=== PATIENT | female | born 1995 | race Caucasian/White ===

== ENCOUNTER 2017-11-04 07:23 | Inpatient (IN) | payer OTHER ==
[2017-11-04] MEDS ORDERED: Oxytocin/Lactated Ringers 10 UNIT/1,000 ML BAG IV SCH (08:30)
[2017-11-04] MEDS ORDERED: Sodium Chloride 0.9% 10 ML Syringe FLUSH PRN (08:30)
[2017-11-04] MEDS: Lactated Ringers 1,000 ML IV SCH ×4 (10:03→13:12)
[2017-11-04] MEDS ORDERED: ePHEDrine 50 MG/ML SDV IVPUSH PRN (10:44)
[2017-11-04] MEDS ORDERED: fentaNYL 100 MCG/2 ML SDV EPIDUR PRN (10:44)
[2017-11-04] MEDS ORDERED: diphenhydrAMINE 50 MG/ML SDV IVPUSH PRN (10:44)
[2017-11-04] MEDS ORDERED: Bupivacaine/fentaNYL/NS 100 ML Bag EPIDUR SCH (10:45)
--- NOTE | 2017-11-04 11:14 | PCM.PREANE ---
Preanesthetic Assessment - Anesthesia/Transfusion/Family Hx Anesthesia History: No Prior Anesthesia Family History of Anesthesia Reaction: No Transfusion History: No Prior Transfusion(s) - Review of Systems General: No Symptoms Pulmonary: No Symptoms Cardiovascular: No Symptoms Gastrointestinal: No Symptoms Neurological: Numbness (feet with ) Other: Reports: None - Physical Assessment Pulse: 84 O2 Sat by Pulse Oximetry: 97 Respiratory Rate: 17 Blood Pressure: 115/87 Temperature: 36.4 C Vital Signs: Last Vital Signs Temp 36.4 C 11/04/17 07:49 Pulse 84 11/04/17 07:49 Resp 17 11/04/17 07:49 BP 115/77 11/04/17 07:49 Pulse Ox Height: 1.75 m Weight: 74.389 kg ASA Class: 2 Mental Status: Alert & Oriented x3 Airway Class: Mallampati = 1 Dentition: Reports: Normal Dentition Thyro-Mental Finger Breadths: 3 Mouth Opening Finger Breadths: 3 ROM/Head Extension: Full Lungs: Clear to Auscultation, Normal Respiratory Effort Cardiovascular: Regular Rate, Regular Rhythm - Lab Values: Laboratory Last Values WBC 15.79 K/mm3 (3.98-10.04) H 11/04/17 08:42 RBC 4.16 M/mm3 (3.98-5.22) 11/04/17 08:42 Hgb 12.7 gm/L (11.2-15.7) 11/04/17 08:42 Hct 36.9 % (34.1-44.9) 11/04/17 08:42 MCV 88.7 fl (79.4-94.8) 11/04/17 08:42 MCH 30.5 pg (25.6-32.2) 11/04/17 08:42 MCHC 34.4 g/dl (32.2-35.5) 11/04/17 08:42 RDW Std Deviation 42.4 fL (36.4-46.3) 11/04/17 08:42 Plt Count 131 K/mm3 (182-369) L 11/04/17 08:42 MPV 11.3 fl (9.4-12.3) 11/04/17 08:42 Neut % (Auto) 84.1 % (34.0-71.1) H 11/04/17 08:42 Lymph % (Auto) 8.4 % (19.3-51.7) L 11/04/17 08:42 Crosby % (Auto) 6.5 % (4.7-12.5) 11/04/17 08:42 Eos % (Auto) 0.6 (0.7-5.8) L 11/04/17 08:42 Baso % (Auto) 0.1 % (0.1-1.2) 11/04/17 08:42 Neut # (Auto) 13.29 K/mm3 (1.56-6.13) H 11/04/17 08:42 Lymph # (Auto) 1.33 K/mm3 (1.18-3.74) 11/04/17 08:42 Crosby # (Auto) 1.03 K/mm3 (0.24-0.36) H 11/04/17 08:42 Eos # (Auto) 0.09 K/mm3 (0.04-0.36) 11/04/17 08:42 Baso # (Auto) 0.01 K/mm3 (0.01-0.08) 11/04/17 08:42 Manual Slide Review Abnormal smear 11/04/17 08:42 Blood Type O POSITIVE 11/04/17 08:42 Gel Antibody Screen Negative 11/04/17 08:42 - Allergies Allergies/Adverse Reactions: Allergies Allergy/AdvReac Type Severity Reaction Status Date / Time amoxicillin Allergy Hives Verified 11/04/17 07:49 - Anesthesia Plan Pre-Op Medication Ordered: None - Acknowledgements Anesthesia Type Planned: Epidural Pt an Appropriate Candidate for the Planned Anesthesia: Yes Alternatives and Risks of Anesthesia Discussed w Pt/Guardian: Yes Pt/Guardian Understands and Agrees with Anesthesia Plan: Yes PreAnesthesia Questionnaire - Past Health History Medical/Surgical History: Denies Medical/Surgical History Gastrointestinal History: Reports: GERD CURATOR 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 Not in MDRO book , will call health facility for cleared records. - SUBSTANCE USE Smoking Status *Q: Never Smoker Recreational Drug Use History: No - HOME MEDS Home Medications: Home Meds Docosahexanoic Acid [DHA] 100 mg PO DAILY 11/04/17 [History] Prenat Vit Comb.10/Iron/Fa/Dha [Vitafol-OB + DHA] 1 each PO DAILY 11/04/17 [ History] - CURRENT (IN HOUSE) MEDS Current Meds: Current Medications Diphenhydramine HCl (Benadryl) 25 mg IVPUSH Q6H PRN PRN Reason: Itching Ephedrine Sulfate (Ephedrine Sulfate) 5 mg IVPUSH ASDIRECTED PRN PRN Reason: HYPOTENTSION Fentanyl (Sublimaze) 100 mcg EPIDUR Q3H PRN PRN Reason: PAIN Last Admin: 11/04/17 11:07 Dose: 100 mcg Fentanyl/Bupivacaine HCl (Fentanyl/Bupivacaine/Ns 2 Mcg-0.125% 100 Ml) 100 ml EPIDUR ASDIRECTED [facility] Last Admin: 11/04/17 11:07 Dose: 100 ml Lactated Ringer's (Ringers, Lactated) 1,000 mls @ 100 mls/hr IV ASDIRECTED [facility] Last Admin: 11/04/17 10:29 Dose: 999 mls/hr Oxytocin/Lactated Ringer's (Pitocin In Lr 10 Units/1,000 Ml) 10 unit in 1,000 mls @ 500 mls/hr IV .CONTINUOUS [facility] PRN Reason: Protocol Sodium Chloride (Saline Flush) 10 ml FLUSH ASDIRECTED PRN PRN Reason: Keep Vein Open
--- NOTE | 2017-11-04 13:18 | HP ---
DATE OF ADMISSION: 11/04/2017 CHIEF COMPLAINT: A 39 and 1/7th-week intrauterine , active labor. HISTORY OF PRESENT ILLNESS: The patient is a 22-year-old, 1, para 0, white female, who began having contractions this a.m. at 0200 hours. They have progressed where she is nathan every 3 minutes to 6 minutes, moderate to strong in palpation and has changed her cervix from 2-3 cm since yesterday. Her MADHAVI is 11/10/2017 as based upon her early ultrasound done at 6 and 6/7 weeks gestational age. Two other ultrasounds done on 04/21/2017 and 06/27/2017 were consistent with that initial ultrasound dating. WELL PULLER HEAD AND COURSE: The patient is 1, para 0. The patient had menarche at approximately age 13. Cycles every month. Not using anything for control prior to conception. Her initial visit was on 04/21/2017 at 11 weeks gestational age. She has had a previous early ultrasound prior to that at 6 and 6/7 weeks. She had regular care during the course of her and made good fundal height growth. Her weight increased from approximately 120-149 pounds for a 29-pound weight gain. Vital signs were stable throughout the course. The patient plans to breastfeed. She declined genetic evaluation. She desires an epidural in Labor and Delivery. Her [place] depression screen score on 06/27/2017 was 3. She is group B strep negative. She did have her flu vaccination in early September. She is rubella nonimmune, therefore is an MMR candidate post delivery. Her 1-hour GTT was normal at 101. LABORATORY DATA: Laboratory testing in shows a blood type which is O positive. Her hemoglobin at first visit was 13.5 and platelets were 174. Her rubella titer shows nonimmunity and therefore is a candidate for MMR postdelivery. RPR is nonreactive. Urine culture was negative. The patient's hepatitis B surface antigen negative and HIV negative. Chlamydia and gonorrhea assays were both negative. Her second trimester testing showed a hemoglobin of 12.5 g/dL, MCV was 91.1, and platelets were 175,000. Her 1-hour GTT again was 101 which was normal. Group B strep screen was negative. ALLERGIES: Amoxicillin tabs, which causes a rash. CURRENT MEDICATIONS: 1. vitamins 1 daily. 2. DHA 200 mg oral capsule daily. PAST MEDICAL HISTORY: Relatively unremarkable. PAST SURGICAL HISTORY: Unremarkable. FAMILY HISTORY: Mother and father are alive and well. The patient has no significant - related problems. Her family has no bleeding, blood clotting, or anesthesia problems in their history. SOCIAL HISTORY: The patient is single, significant other is Anoop Pyle. They live in [place], [place]. She does not use any significant amounts of alcohol, drugs, or tobacco. REVIEW OF SYSTEMS: GENERAL: The patient is having contractions of labor, but otherwise is doing well and has no complaints. SKIN: Negative. CARDIOVASCULAR: No chest pain or exercise intolerance. RESPIRATORY: No shortness of breath or infectious symptoms. BREASTS: Changes associated with . The patient does plan to breast- feed. GI: Negative. : Changes associated with with increased fundal height appropriate for dates. EXTREMITIES AND MUSCULOSKELETAL: Negative. NEUROLOGICAL: Negative. PSYCHOLOGICAL: Negative. PHYSICAL EXAMINATION: GENERAL: The patient is a well-developed, well-nourished, pleasant female, in mild distress secondary to labor pains. SKIN: Warm and dry without lesions. VITAL SIGNS: Blood pressure on last evaluation in clinic yesterday was 95/58. Weight was 158 with a pregravid weight of 120 for a 38-pound weight gain since pregravid weight. Her fundal height was appropriate for dates. Her height is 5 feet 9 inches. Her pregravid BMI was 17.7. HEENT: Within normal limits. NECK.Within normal limits. BACK: Within normal limits. LUNGS: Clear with good breath sounds in all lung [place]. CARDIOVASCULAR: Shows regular rate and rhythm without murmurs. BREASTS: Exam deferred having been done at first visit and found to be normal. ABDOMEN: Protuberant with with fundal height evaluation at 39 cm yesterday. : Cervix is 3 cm, 95% effaced, 0 station, mid position, very soft, bulging bag of ma. Artificial rupture of membranes is undertaken with resultant clear amniotic fluid. EXTREMITIES AND NEUROLOGICAL: Grossly within normal limits. ASSESSMENT: 1. Term intrauterine at 39 and 1/7th weeks gestational age, active labor with cervical change. 2. Group B strep screen negative. 3. Rubella titer is nonreactive. Therefore, patient is a candidate for MMR after delivery. 4. The patient is desiring epidural in Labor and Delivery. 5. The patient plans to breast feed. PLAN: 1. Anticipate normal spontaneous vaginal delivery. 2. Epidural p.r.n. 3. Support nursing decision. 4. CBC, pre-epidural for platelet count. MMODAL /[id number]
[2017-11-04] MEDS ORDERED: Ondansetron 4 MG/2 ML SDV IVPUSH PRN (17:22)
--- NOTE | 2017-11-04 18:48 | PCM.SN ---
- Free Text/Narrative Note: Delivery note: Sunita is a 22-year-old 1 now para 1001 white female who began in labor at approximately 0200 hrs. on 11/04/2017. Contractions progressively increased in intensity and conceive and patient was admitted to the hospital approximately 0800 hrs. on 11/04/2017. Her MADHAVI 11/10/2017. She is 39-1 /7 weeks gestational age upon admission for labor. Cervix unchanged and patient underwent artificial rupture membranes with resultant clear amniotic fluid. Patient labored until approximately 1445 hrs. at which time she became complete. She began pushing and at 18 hours on 11/04/2017 patient delivered a viable, garland, female infant in a direct occiput anterior position. Baby weighed 3720 g (8 pounds 3.2 ounces), had Apgars of 8 and 9 and a length of 20 inches. The baby was placed on mom's abdomen. The cord was clamped 2 and and then was cut by the baby's father. Cord blood is obtained. The umbilical cord had 3 vessels. Pitocin was started IV after delivery of the baby to facilitate increase in uterine tone and decrease the likelihood of bleeding. The placenta delivered at 1821 hrs. in a [place] presentation. It appeared intact and complete. It was discarded per patient desire. Estimated blood loss was 100 mL. First-degree laceration was repaired with 3-0 Monocryl sutures in a routine fashion. Patient plans to breast-feed. Condition: Good.
[2017-11-04] MEDS ORDERED: Measles, Mumps & Rubella Vaccine 0.5 ML SDV SUBCUT ONE (19:11)
[2017-11-04] MEDS ORDERED: Benzocaine/Menthol 20%-0.5% Spray 56 GM Canister TOP PRN (19:11)
[2017-11-04] MEDS ORDERED: Acetaminophen 325 MG Tab PO PRN (19:11)
[2017-11-04] MEDS ORDERED: Witch Hazel Medicated Pads 100/Jar TOP PRN (19:11)
[2017-11-04] MEDS ORDERED: Lanolin 100% Cream 7 GM Tube TOP PRN (19:11)
[2017-11-04] MEDS: Ibuprofen 600 MG Tab PO PRN (21:34)
[2017-11-05] MEDS: Ibuprofen 600 MG Tab PO PRN ×2 (02:14→07:28)
[2017-11-05] MEDS ORDERED: Prenatal Multivitamin with Calcium/Folic Acid/Iron Tab PO SCH (09:00)
--- NOTE | 2017-11-05 11:10 | PCM.SN ---
- Free Text/Narrative Note: Post Progress Note PPD # 1 Subjective: Doing well overall. Ambulating without difficulty. Lochia minimal. Voiding without difficulty. Tolerating regular diet without nausea or vomiting. Pain controlled with oral medications. Breast feeding with minimal difficulty. Objective: Vitals: Vital Signs - 24 hr 11/04/17 11/05/17 11:13 04:36 Temperature 36.4 C 36.6 C Pulse, 84 80 Peripheral Respiratory 17 14 Rate Blood Pressure 115/87 112/61 O2 Sat by Pulse 97 96 Oximetry Physical Exam General: Alert and oriented, no acute distress Lungs: Clear to auscultation bilaterally Heart: Regular rate and rhythm Abdomen: Soft, minimal appropriate tenderness, non-distended, fundus midline, nontender, and below the umbilicus Extremities: 1+ edema in bilateral lower extremities to mid shins ASSESSMENT: 22-year-old female G 1 P 1001 s/p normal vaginal delivery PPD #1, complicated by rubella nonimmune status PLAN: Doing well Breast feeding with minimal difficulty. Assist as needed Lochia minimal. Continue to monitor for appropriate lochia. Continue routine care Patient declines MMR vaccine and plans to receive at visit Anticipate discharge home today Cuauhtemoc Mosquera MD 11:09 AM 11/05/2017
--- NOTE | 2017-11-05 11:18 | PCM.DCSUM1 ---
Discharge Summary - Hospital Course Free Text/Narrative:: Delivery note: Jason is a 22-year-old 1 now para 1001 white female who began in labor at approximately 0200 hrs. on 11/04/2017. Contractions progressively increased in intensity and conceive and patient was admitted to the hospital approximately 0800 hrs. on 11/04/2017. Her MADHAVI 11/10/2017. She is 39-1 /7 weeks gestational age upon admission for labor. Cervix unchanged and patient underwent artificial rupture membranes with resultant clear amniotic fluid. Patient labored until approximately 1445 hrs. at which time she became complete. She began pushing and at 18 hours on 11/04/2017 patient delivered a viable, garland, female in a direct occiput anterior position. Baby weighed 3720 g (8 pounds 3.2 ounces), had Apgars of 8 and 9 and a length of 20 inches. The baby was placed on mom's abdomen. The cord was clamped 2 and and then was cut by the baby's father. Cord blood is obtained. The umbilical cord had 3 vessels. Pitocin was started IV after delivery of the baby to facilitate increase in uterine tone and decrease the likelihood of bleeding. The placenta delivered at 1821 hrs. in a [place] presentation. It appeared intact and complete. It was discarded per patient desire. Estimated blood loss was 100 mL. First-degree laceration was repaired with 3-0 Monocryl sutures in a routine fashion. Patient plans to breast-feed. Condition: Good. HPI Initial Comments: Delivery note: Jason is a 22-year-old 1 now para 1001 white female who began in labor at approximately 0200 hrs. on 11/04/2017. Contractions progressively increased in intensity and conceive and patient was admitted to the hospital approximately 0800 hrs. on 11/04/2017. Her MADHAVI 11/10/2017. She is 39-1 /7 weeks gestational age upon admission for labor. Cervix unchanged and patient underwent artificial rupture membranes with resultant clear amniotic fluid. Patient labored until approximately 1445 hrs. at which time she became complete. She began pushing and at 18 hours on 11/04/2017 patient delivered a viable, garland, female infant in a direct occiput anterior position. Baby weighed 3720 g (8 pounds 3.2 ounces), had Apgars of 8 and 9 and a length of 20 inches. The baby was placed on mom's abdomen. The cord was clamped 2 and and then was cut by the baby's father. Cord blood is obtained. The umbilical cord had 3 vessels. Pitocin was started IV after delivery of the baby to facilitate increase in uterine tone and decrease the likelihood of bleeding. The placenta delivered at 1821 hrs. in a [place]a presentation. It appeared intact and complete. It was discarded per patient desire. Estimated blood loss was 100 mL. First-degree laceration was repaired with 3-0 Monocryl sutures in a routine fashion. Patient plans to breast-feed. Condition: Good. Brief History: Delivery note: Jason is a 22-year-old 1 now para 1001 white female who began in labor at approximately 0200 hrs. on 11/04/2017. Contractions progressively increased in intensity and conceive and patient was admitted to the hospital approximately 0800 hrs. on 11/04/2017. Her MADHAVI 2017. She is 39-1/7 weeks gestational age upon admission for labor. Cervix unchanged and patient underwent artificial rupture membranes with resultant clear amniotic fluid. Patient labored until approximately 1445 hrs. at which time she became complete. She began pushing and at 18 hours on 11/04/2017 patient delivered a viable, garland, female in a direct occiput anterior position. Baby weighed 3720 g (8 pounds 3.2 ounces), had Apgars of 8 and 9 and a length of 20 inches. The baby was placed on mom's abdomen. The cord was clamped 2 and and then was cut by the baby's father. Cord blood is obtained. The umbilical cord had 3 vessels. Pitocin was started IV after delivery of the baby to facilitate increase in uterine tone and decrease the likelihood of bleeding. The placenta delivered at 1821 hrs. in a [place]a presentation. It appeared intact and complete. It was discarded per patient desire. Estimated blood loss was 100 mL. First-degree laceration was repaired with 3-0 Monocryl sutures in a routine fashion. Patient plans to breast-feed. Condition: Good. - Discharge Data Discharge Date: 11/05/17 Discharge Disposition: Home, Self-Care 01 Condition: Good - Discharge Diagnosis/Problem(s) (1) 39 weeks gestation of SNOMED Code(s): 47060604 ICD Code: Z3A.39 - 39 WEEKS GESTATION OF Status: Acute Current Visit: Yes (2) (normal spontaneous vaginal delivery) SNOMED Code(s): 42948704 ICD Code: O80 - ENCOUNTER FOR FULL-TERM UNCOMPLICATED DELIVERY Status: Acute Current Visit: Yes (3) First degree laceration of perineum, delivered, current hospitalization SNOMED Code(s): 984562009 ICD Code: O70.0 - FIRST DEGREE PERINEAL LACERATION DURING DELIVERY Status: Acute Current Visit: Yes (4) Rubella nonimmune status, delivered, current hospitalization SNOMED Code(s): 729934487 ICD Code: O99.89 - OTH DISEASES AND CONDITIONS COMPL PREG/CHLDBRTH; Z28.3 - UNDERIMMUNIZATION STATUS Status: Acute Current Visit: Yes - Patient Summary/Data Complications: None Consults: None Hospital Course: Jason Betancourt was admitted for active labor. On admission her cervix was dilated to 3 cm. She was GBS negative. She was given pitocin for augmentation. She was given an epidural for anesthesia. She had artificial rupture of membranes with clear fluid. She progressed to complete and began pushing. On 11/04 she had a normal vaginal delivery of a viable female infant. Apgars of 8 & 9. Weight of 3720 g (8 pounds 3.2 ounces). Her course was uneventful. Her pain was well controlled and she had minimal lochia. She was ambulating, tolerating a regular diet and voiding normally. She was breast feeding. She was afebrile and her hematocrit was 36.9 on admission and was 30.8 on day #1. She desired to be discharged home on the morning of PPD # 1. Her blood type is O+. She is rubella nonimmune her labs but declined MMR vaccine while in the hospital and plans to receive . Follow-up in the clinic in 2 weeks or earlier as needed. - Patient Instructions Diet: Regular Diet as Tolerated Activity: As Tolerated Activity, Other: Nothing in vagina for 6 weeks Driving: May Drive Today Showering/Bathing: May Shower, No Tub Bathing/Swimming (For 1 week) Notify Provider of: Fever, Increased Pain, Swelling and Redness, Drainage, Nausea and/or Vomiting - Discharge Plan Home Medications: Home Meds Docosahexanoic Acid [DHA] 100 mg PO DAILY 11/04/17 [History] Prenat Vit Comb.10/Iron/Fa/Dha [Vitafol-OB + DHA] 1 each PO DAILY 11/04/17 [ History] Acetaminophen [Tylenol] 650 mg PO Q6H PRN tablet 11/05/17 [Rx] Benzocaine/Menthol [Dermoplast Pain Relief [place]] 1 spray TOP ASDIRECTED PRN canister 11/05/17 [Rx] Ibuprofen [IJD: Ibuprofen] 600 mg PO Q6H PRN tablet 11/05/17 [Rx] Lanolin [Lansinoh HPA] 1 applic TOP ASDIRECTED PRN tube 11/05/17 [Rx] Patient Handouts: How to Take a Sitz Bath, Home Care Instructions for Mom, Vaginal Delivery, Care After, Care of a Perineal Tear Referrals: Ren Daniels MD [Primary Care Provider] - (Follow-up in 2 weeks or earlier as needed for visit.) - Discharge Summary/Plan Comment DC Time >30 min.: No - Patient Data Vitals - Most Recent: Last Vital Signs Temp 36.6 C 11/05/17 04:36 Pulse 80 11/05/17 04:36 Resp 14 11/05/17 04:36 BP 112/61 11/05/17 04:36 Pulse Ox 96 11/05/17 04:36 Weight - Most Recent: 74.389 kg I&O - Last 24 hours: Intake & Output 11/04/17 11/05/17 11/05/17 22:59 06:59 14:59 Intake Total 3000 Balance 3000 Lab Results - Last 24 hrs: Laboratory Results - last 24 hr 11/05/17 Range/Units 05:45 WBC 20.35 H (3.98-10.04) K/mm3 RBC 3.40 L (3.98-5.22) M/mm3 Hgb 10.3 L (11.2-15.7) gm/L Hct 30.8 L (34.1-44.9) % MCV 90.6 (79.4-94.8) fl MCH 30.3 (25.6-32.2) pg MCHC 33.4 (32.2-35.5) g/dl RDW Std Deviation 42.7 (36.4-46.3) fL Plt Count 130 L (182-369) K/mm3 MPV 12.1 (9.4-12.3) fl Med Orders - Current: Current Medications Acetaminophen (Tylenol) 650 mg PO Q4H PRN PRN Reason: mild pain or fever Benzocaine/Menthol (Dermoplast Pain Relief [place]) 0 gm TOP ASDIRECTED PRN PRN Reason: Perineal Comfort Measure Emollient Ointment (Lansinoh Hpa) 0 gm TOP ASDIRECTED PRN PRN Reason: Sore Nipples Ibuprofen (Motrin) 600 mg PO Q4H PRN PRN Reason: Mild pain or fever Last Admin: 11/05/17 07:28 Dose: 600 mg Prenat Multivit/[place]/Iron/Folic Ac ( Plus Iron) 1 each PO DAILY [facility] Last Admin: 11/05/17 09:25 Dose: Not Given Witch [place] (Tucks) 1 pad TOP ASDIRECTED PRN PRN Reason: Hemorrhoid pain Discontinued Medications Diphenhydramine HCl (Benadryl) 25 mg IVPUSH Q6H PRN PRN Reason: Itching Ephedrine Sulfate (Ephedrine Sulfate) 5 mg IVPUSH ASDIRECTED PRN PRN Reason: HYPOTENTSION Fentanyl (Sublimaze) 100 mcg EPIDUR Q3H PRN PRN Reason: PAIN Last Admin: 11/04/17 11:07 Dose: 100 mcg Fentanyl/Bupivacaine HCl (Fentanyl/Bupivacaine/Ns 2 Mcg-0.125% 100 Ml) 100 ml EPIDUR ASDIRECTED [facility] Last Admin: 11/04/17 11:07 Dose: 100 ml Lactated Ringer's (Ringers, Lactated) 1,000 mls @ 100 mls/hr IV ASDIRECTED [facility] Last Admin: 11/04/17 13:12 Dose: 100 mls/hr Oxytocin/Lactated Ringer's (Pitocin In Lr 10 Units/1,000 Ml) 10 unit in 1,000 mls @ 500 mls/hr IV .CONTINUOUS [facility] PRN Reason: Protocol Last Admin: 11/04/17 18:19 Dose: 500 mls/hr Measles/Mumps/Rubella Vaccine Live (M-M-R Ii Vaccine) 0.5 ml SUBCUT .ONCE ONE Stop: 11/04/17 19:12 Last Admin: 11/05/17 09:45 Dose: Not Given Ondansetron HCl (Zofran) 4 mg IVPUSH Q8H PRN PRN Reason: Nausea Last Admin: 11/04/17 17:36 Dose: 4 mg Sodium Chloride (Saline Flush) 10 ml FLUSH ASDIRECTED PRN PRN Reason: Keep Vein Open *Q Meaningful Use (DIS) - VTE *Q VTE Criteria *Q: - Stroke *Q Stroke Criteria *Q: - AMI *Q AMI Criteria *Q:
== END 2017-11-05 19:15 | disposition home or self-care (01) | DRG 775 ==
LOC: JD.OBCHECK 07:23 → JD.OB 07:27 → JD.OBCHECK 08:30 → JD.OB 18:18 → OBSVTOIN 18:18
PROVIDERS: ADMIT Obstetrics & Gynecology; ATTEND Obstetrics & Gynecology
PROC: 10E0XZZ Delivery of Products of Conception, External Approach (ICD-10-PCS; principal; 2017-11-04)
PROC: 10907ZC Drainage of Amniotic Fluid, Therapeutic from Products of Conception, Via Natural or Artificial Opening (ICD-10-PCS; 2017-11-04)
PROC: 0HQ9XZZ Repair Perineum Skin, External Approach (ICD-10-PCS; 2017-11-04)
PROC: 00HU33Z Insertion of Infusion Device into Spinal Canal, Percutaneous Approach (ICD-10-PCS; 2017-11-04)
PROC: 3E0R3BZ Introduction of Anesthetic Agent into Spinal Canal, Percutaneous Approach (ICD-10-PCS; 2017-11-04)
DX: O70.0 First degree perineal laceration during delivery (principal); Z3A.39 39 weeks gestation of pregnancy; Z37.0 Single live birth; Z88.1 Allergy status to other antibiotic agents
CPT/HCPCS: 36415; 51702; 59300; 59409; 85025; 85027; 86850; 86900; 86901; A9270-GY; J2405; J2590; J3010; J7120

== ENCOUNTER 2021-12-16 13:54 | Inpatient (IN) | payer OTHER, MEDICAID ==
[2021-12-16] MEDS ORDERED: Nalbuphine 10 MG/1 ML Vial IVPUSH PRN (15:28)
[2021-12-16] MEDS ORDERED: Sodium Chloride 0.9% 10 ML Syringe FLUSH PRN (15:28)
[2021-12-16] MEDS ORDERED: Oxytocin/Lactated Ringers 10 UNIT/1,000 ML BAG IV SCH ×2 (15:30)
[2021-12-16] MEDS ORDERED: fentaNYL 100 MCG/2 ML SDV EPIDUR PRN (17:26)
[2021-12-16] MEDS ORDERED: diphenhydrAMINE 50 MG/ML SDV IVPUSH PRN (17:26)
[2021-12-16] MEDS ORDERED: ePHEDrine 50 MG/ML SDV IVPUSH PRN (17:26)
[2021-12-16] MEDS: Lactated Ringers 1,000 ML IV SCH ×3 (17:48→19:53)
[2021-12-16] MEDS: Bupivacaine/fentaNYL/NS 100 ML Bag EPIDUR PRN (18:14)
[2021-12-16] MEDS ORDERED: Sodium Chloride 0.9% 10 ML Syringe FLUSH SCH (21:00)
[2021-12-16] MEDS: Ondansetron 4 MG/2 ML SDV IVPUSH PRN (23:20)
[2021-12-17] MEDS ORDERED: Bupivacaine 0.25% 10 ML SDV ONE
[2021-12-17] MEDS: Lactated Ringers 1,000 ML IV SCH (00:20)
[2021-12-17] MEDS: Bupivacaine/fentaNYL/NS 100 ML Bag EPIDUR PRN (01:19)
[2021-12-17] MEDS: Ondansetron 4 MG/2 ML SDV IVPUSH PRN (03:26)
[2021-12-17] MEDS ORDERED: Acetaminophen 325 MG Tab PO PRN (03:37)
[2021-12-17] MEDS ORDERED: Benzocaine/Menthol 20%-0.5% Spray 78 GM Cannister TOP PRN (03:37)
[2021-12-17] MEDS ORDERED: Witch Hazel Medicated Pads 40/Jar TOP PRN (03:37)
[2021-12-17] MEDS: Ibuprofen 600 MG Tab PO PRN ×3 (06:40→20:51)
[2021-12-17] MEDS: Prenatal Multivitamin with Calcium/Folic Acid/Iron Tab PO SCH (08:28)
[2021-12-17] MEDS: Docusate Sodium 100 MG Cap PO PRN (20:51)
[2021-12-18] MEDS: Docusate Sodium 100 MG Cap PO PRN (09:01)
[2021-12-18] MEDS: Ibuprofen 600 MG Tab PO PRN (09:01)
[2021-12-18] MEDS: Prenatal Multivitamin with Calcium/Folic Acid/Iron Tab PO SCH (09:01)
== END 2021-12-18 13:25 | disposition home or self-care (01) | DRG 807 ==
LOC: JD.WOMH 13:54 → JD.OB 15:16 → OBSVTOIN 12-17 02:25 → JD.OB 12-17 02:26
PROVIDERS: ADMIT Obstetrics & Gynecology; ATTEND Obstetrics & Gynecology
PROC: 10E0XZZ Delivery of Products of Conception, External Approach (ICD-10-PCS; principal; 2021-12-17)
PROC: 10907ZC Drainage of Amniotic Fluid, Therapeutic from Products of Conception, Via Natural or Artificial Opening (ICD-10-PCS; 2021-12-17)
PROC: 3E033VJ Introduction of Other Hormone into Peripheral Vein, Percutaneous Approach (ICD-10-PCS; 2021-12-17)
PROC: 3E0R3BZ Introduction of Anesthetic Agent into Spinal Canal, Percutaneous Approach (ICD-10-PCS; 2021-12-17)
DX: O66.0 Obstructed labor due to shoulder dystocia (principal); Z37.0 Single live birth; Z3A.38 38 weeks gestation of pregnancy
CPT/HCPCS: 01967; 36415; 51702; 59025; 59409; 84112; 85025; 86592; A9270-GY; J2405; J2590; J3010; J3490; J7120